=== PATIENT | female | born 2005 | race Caucasian/White ===

== ENCOUNTER 2024-01-29 08:25 | Outpatient (CLI) | payer OTHER, SELFPAY | END 2024-01-29 08:26 | disposition home or self-care (01) | LOC: NFLDREF 02-02 17:55 | PROVIDERS: PCP Physician Assistant Medical; Referring Provider Physician Assistant Medical; Visit Provider Physician Assistant Medical | DX: Z11.3 Encounter for screening for infections with a predominantly sexual mode of transmission (principal); F41.9 Anxiety disorder, unspecified; F32.A Depression, unspecified | CPT/HCPCS: 87491; 87591 ==

== ENCOUNTER 2024-08-23 08:25 | Outpatient (CLI) | payer OTHER, SELFPAY | END 2024-08-23 08:26 | disposition home or self-care (01) | LOC: NFLDREF 08-30 23:22 | PROVIDERS: PCP Physician Assistant Medical; Referring Provider Physician Assistant Medical; Visit Provider Physician Assistant Medical | DX: Z11.3 Encounter for screening for infections with a predominantly sexual mode of transmission (principal) | CPT/HCPCS: 87491; 87591 ==

== ENCOUNTER 2025-01-21 11:01 | Outpatient (CLI) | payer OTHER, SELFPAY ==
--- NOTE | 2025-01-21 11:15 | CRLHL7_ITS ---
For Patients: As a result of the Cures Act, medical imaging exams and procedure reports are released immediately into your electronic medical record. You may view this report before your referring provider. If you have questions, please contact your health care provider. RIGHT BREAST ULTRASOUND, 01/21/2025 CLINICAL HISTORY: RIGHT breast lump. COMPARISON: None. TECHNIQUE: Real-time ultrasound imaging of RIGHT breast with imaging documentation. FINDINGS: Targeted ultrasound performed in the area of concern at 1 o`clock 3 cm from the nipple. Solid circumscribed hypoechoic mass with circumscribed margins and increased through transmission is present. This measures 2.1 x 1.0 x 1.6 cm. No abnormal vascularity. IMPRESSION: Benign fibroadenoma right breast 1 o`clock 3 cm from the nipple measuring 2.1 x 1.0 x 1.6 cm. RECOMMENDATIONS: Clinical follow-up. Results and recommendations were discussed with the patient at the time of the exam. A lay language report of this examination will be provided to the patient. BI-RADS Category 2. Benign Dictated by Dusty Lopez MD @ 01/21/2025 12:17:59 PM/CRL:[email or web address] [email or web address]/Dictated by: Dusty Lopez MD @ 01/21/2025 12:18:00 PM (Electronically Signed)
== END 2025-01-21 11:02 | disposition home or self-care (01) ==
LOC: US 11:03
PROVIDERS: PCP Physician Assistant Medical; Visit Provider Physician Assistant Medical
DX: N63.10 Unspecified lump in the right breast, unspecified quadrant (principal); D24.1 Benign neoplasm of right breast
CPT/HCPCS: 76642